=== PATIENT | male | born 2000 | race Two or more races ===

== ENCOUNTER 2022-04-26 20:15 | Emergency (ER) | payer BC ==
[~2022-04-26] VITALS: Ht 180.3 cm; Wt 84.1 kg
[2022-04-26] MEDS ORDERED: HYDROCODONE/ACETAMINOPHEN 5-325 MG TABLET PO ONE (21:15)
[2022-04-26] MEDS ORDERED: IBUPROFEN 600 MG TABLET PO ONE (21:15)
[2022-04-26 21:29] VITALS: BP 133/87
[2022-04-26] MEDS ORDERED: HYDR-4723 PO (21:34)
[2022-04-26] MEDS ORDERED: IBUP-1554 PO (21:34)
[2022-04-26] MEDS ORDERED: CEPH-558 PO (21:34)
== END 2022-04-26 21:51 | disposition home or self-care (01) ==
LOC: EMS 20:15
DX: T63.511A Toxic effect of contact with stingray, accidental (unintentional), initial encounter (principal); F17.210 Nicotine dependence, cigarettes, uncomplicated; Y92.89 Other specified places as the place of occurrence of the external cause
CPT/HCPCS: 99283